=== PATIENT | female | born 1980 | race Caucasian/White ===

== ENCOUNTER 2023-10-18 10:07 | Outpatient (OUT) | payer OTHER, SELFPAY ==
--- NOTE | 2023-10-17 12:43 | V.VEINS.HP ---
Vital Signs 10/18/23 09:43 10/18/23 10:07 Height 5 ft 6 in Weight 64.41 kg BP 106/56 BP Location Left Brachial BP Position Sitting BP Cuff Size Adult BP Source Manual Cuff Respiration 16 Pulse 95 H Pulse Source Monitor Pulse Oximetry (%) 99 Oxygen Delivery Method Room Air Varicose Veins Patient is a 43 year old female in this day as a referral from Althea Longoria NP at Dr. Mason's office. Patient c/o kidney infection in august 2023 with back issues and muscle spasms to which she has cared for with physical therapy. Accompanied with this was a great amount of edema left leg only along with a well pronounced vein to mid left lower leg that was red and raised. The redness and edema have subsided, yet the vein is still very prominent. Patient maintains c/o bilateral leg edema/achiness/pain along with heaviness more in the left leg than right leg for past three months. Patient rates pain at a 3 on a scale of 1-10. Patient has worn bilateral leg knee high compression stockings for approximately 20 years. Patient notes increases in symptoms when she is on her feet for long periods of time, along with changes in diet and sleep schedule. Patient notes improvement in symptoms with compression stockings, rest, and elevation along with additional electrolyte replacment. Family varicose vein disease is noted in maternal grandmother. Patient has not had any procedures done to her veins in the past. Akin Caballero MD personally performed the services described in this documentation, as scribed by Suresh Gamboa RN in my presence and it is both accurate and complete. Suresh Caballero RN, am scribing for, and in the presence of, Dr. Akin Fernandez and in the presence of the patient. . knee: bilateral, calf: bilateral, ankle: bilateral and hutchins: bilateral aching, burning, cramping and dull 3 20 years Worsened in recent months: Yes standing elevating extremities, compression stockings and exercise Reports heaviness, edema and leg edema History of lower extremity trauma: No Superficial thrombophlebitis: No Family history of varicose veins: yes Has patient had previous lower extremity venous surgery: No Patient has previously received the following treatment(s) for lower extremity varicose veins: Reports none Does patient have a history of : yes Does patient intend to have future pregnancies: no Has patient had lower extremity venous scan with relux testing: No Support hose used: Yes Problems walking or doing physical activity: Yes How does it affect you: tires easily and has to set and elevate feet/legs Do you walk much: Yes Do you stand much: Yes Review of Systems ROS Narrative Akin Caballero MD personally performed the services described in this documentation, as scribed by Suresh Gamboa RN in my presence and it is both accurate and complete. I, Suresh Gamboa RN, am scribing for, and in the presence of, Dr. Akin Fernandez and in the presence of the patient. 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 (ICD-10) Vitamin D deficiency ?E55.9 - Vitamin D deficiency, unspecified (ICD-10) Sjogren syndrome ?M35.00 - Sjogren syndrome, unspecified (ICD-10) Raynaud disease without gangrene ?I73.00 - Raynaud's syndrome without gangrene (ICD-10) Nonrheumatic mitral valve regurgitation ?I34.0 - Nonrheumatic mitral (valve) insufficiency (ICD-10) Nonrheumatic aortic (valve) insufficiency ?I35.1 - Nonrheumatic aortic (valve) insufficiency (ICD-10) Intractable migraine with aura without status migrainosus ?G43.119 - Migraine with aura, intractable, without status migrainosus (ICD-10) Varicose veins of bilateral lower extremities with pain ?I83.813 - Varicose veins of bilateral lower extremities with pain (ICD-10) Generalized anxiety disorder ?F41.1 - Generalized anxiety disorder (ICD-10) Surgical History (Updated 10/18/23 @ 10:34 by Suresh Gamboa) History of tonsillectomy and adenoidectomy ?Z90.89 - Acquired absence of other organs (ICD-10) Family History (Updated 10/18/23 @ 10:36 by Suresh Gamboa) Other Arthritis Asthma Family history of cancer Family history of hypertension Family history of myocardial infarction Varicose veins of bilateral lower extremities with pain Social History (Updated 10/18/23 @ 10:36 by Suresh Gamboa) Within the past year, how often did you have a drink containing alcohol: monthly or less Smoking status: Never smoker Non-prescribed substance use: denies use Meds Home Medications and Allergies Home Medications ?Medication ?Instructions ?Recorded ?Confirmed ?Type Lactobacillus acidophilus 10 100 mmu cells PO DAILY 10/18/23 10/18/23 History billion cell capsule (Probacap) cholecalciferol (vitamin D3) 25 25 mcg PO DAILY 10/18/23 10/18/23 History mcg (1,000 unit) capsule clobetasol 0.05 % topical cream 1 applic topical BID 10/18/23 10/18/23 History diphenhydramine HCl 25 mg capsule 25 mg PO Q8H PRN allergy symptoms 10/18/23 10/18/23 History (Allergy (diphenhydramine)) ferrous sulfate 325 mg (65 mg 325 mg PO DAILY 10/18/23 10/18/23 History iron) tablet fluticasone propionate 50 1 spray intranasal DAILY PRN nasal 10/18/23 10/18/23 History mcg/actuation nasal congestion spray,suspension (Aller-Arturo) gabapentin 100 mg capsule 100 mg PO BID 10/18/23 10/18/23 History levocetirizine 2.5 mg/5 mL oral 2.5 mg PO QPM 10/18/23 10/18/23 History solution oxcarbazepine 150 mg tablet 150 mg PO BID 10/18/23 10/18/23 History (Trileptal) Allergies Allergy/AdvReac Type Severity Reaction Status Date / Time celecoxib Allergy Mild Rash Verified 10/18/23 09:56 cevimeline Allergy Mild Rash Verified 10/18/23 09:56 hydroxychloroquine Allergy Mild Rash Verified 10/18/23 09:56 Exam Narrative Exam Narrative: Akin Caballero MD personally performed the services described in this documentation, as scribed by Suresh Gamboa RN in my presence and it is both accurate and complete. ISuresh RN, am scribing for, and in the presence of, Dr. Akin Fernandez and in the presence of the patient. Constitutional Documenting provider has reviewed patient's vital signs: yes Common normals: oriented x3 Cardio Peripheral pulses: dorsalis pedis pulses present Extremity Common normals: normal capillary refill General: edema Right lower extremity: lower leg Right lower leg: inspection and palpation Left lower extremity: lower leg Left lower leg: inspection and palpation Neuro Common normals: oriented x3 Results Additional Findings Additional findings: Bilateral leg reflux u/s reveals no significant varicose vein disease to which needs treated at this time. Akin Caballero MD personally performed the services described in this documentation, as scribed by Suresh Gamboa RN in my presence and it is both accurate and complete. ISuresh RN, am scribing for, and in the presence of, Dr. Akin Fernandez and in the presence of the patient. Assessment and Plan Assessment and Plan (1) Varicose veins of bilateral lower extremities with pain: Plan Dr. Fernandez examines patient and reviews results of bilateral leg reflux u/s. Patient and Dr. Fernandez create plan of care. Plan is for patient to continue use of bilateral leg knee high compression stockings, exercise, rest, and elevation. No treatment nor f/u necessary at this time. Akin Caballero MD personally performed the services described in this documentation, as scribed by Suresh Gamboa RN in my presence and it is both accurate and complete. Suresh Caballero RN, am scribing for, and in the presence of, Dr. Akin Fernandez and in the presence of the patient.
--- NOTE | 2023-10-17 12:44 | P.DS_ITS ---
Discharge Plan Discharge Disposition: Home, Self-Care Follow Up Appointments: no f/u appointment necessary Plan of Treatment: Patient to continue use of bilateral leg knee high compression stockings, exercise, rest, and elevation of bilateral feet/legs. No treatments necessary at this time. Print Language: Kinyarwanda Discharge Date/Time: 10/18/23 11:40
[2023-10-18 10:07] VITALS: BP 106/56; PULSE 95; O2SAT 99
--- NOTE | 2023-10-18 10:09 | VEIN_ITS ---
Patient Name: BEN ORTEZ MR#: [id number] : 1980 Exam Date: 10/18/2023 Ordering Doctor: DR JERRY FERNANDEZ M.D. RADIOLOGY REPORT PROCEDURE: [facility] - OFFICE VISIT INITIAL COMPARISON: None. PROGRESS NOTES: [age] year old female who presents with a 20 year history of mild edema, achiness, heaviness. The patient's left leg symptoms are worse than the right. There has been a progression of symptoms over the past 3 months. This increases with prolonged leg dependency. The patient describes an improvement with compression stockings, rest, elevation, and electrolyte replacement. The patient denies any signs and symptoms to suggest arterial ischemia. The patient describes a family history varicose veins, hypertension, cancer. The patient has drinking and smoking history of occasional alcohol consumption; no tobacco use. Patient has a past medical history significant for Mehnaz-Danlos, Raynauds. The patient denies a history of deep venous thrombus or pulmonary embolus. See separate history and physical for medication list. No prior treatment for varicose or spider veins. Current long-term use of compression stockings. After review of nurse notes, history and physical exam I discussed at length the pathophysiology of venous hypertension and possible treatments, therapies and strategies available. We discussed at length the importance of elevating the lower extremities above the level of the heart, increased physical activity and compression stocking use. Ultrasound venous reflux study performed today was discussed at length with the patient. The report demonstrates areas of mild dilation and mild reflux, but no veins warranting treatment at this time. PHYSICAL EXAM: The right leg demonstrates no significant varicosities, a few scattered spider veins, no ulceration, no significant edema, no skin discoloration. The left leg demonstrates no significant varicosities, a few scattered spider veins, no ulceration, no significant edema, no skin discoloration. Both thighs, legs and feet were symmetrically warm to the touch. Good posterior tibial and dorsalis pedis pulses were present bilaterally. VEIN/[facility] IMPRESSION: 1. No significant venous insufficiency 2. No significant lower extremity varicose veins 3. No significant lower extremity subcutaneous edema 4. No flow significant arterial disease 5. CEAP: C1, EC, , [place] PLAN: 1. Continued use of compression stockings 2. Elevated legs and increased physical activity symptomatic relief 3. Follow-up in the future as needed. Nurse notes, history and physical were reviewed and confirmed, see attached forms. The nurse was present throughout the physical exam and consultation Dictated by: Jerry Fernandez M.D. on 10/18/2023 at 11:39 Approved by: Jerry Fernandez M.D. on 10/18/2023 at 11:46
--- NOTE | 2023-10-18 10:09 | VEIN_ITS ---
Patient Name: BEN ORTEZ MR#: [id number] : 1980 Exam Date: 10/18/2023 Ordering Doctor: DR JERRY FERNANDEZ M.D. RADIOLOGY REPORT PROCEDURE: VC EXT VENOUS REFLUX LALO LMTD COMPARISON: None. INDICATIONS: I83.813 - Varicose veins of bilateral lower extremities with pain TECHNIQUE: Duplex imaging of the lower extremity to assess the deep and superficial venous system for the presence of deep or superficial venous incompetence and to document the location and severity of disease. The study includes evaluation of the great saphenous vein (GSV), anterior accessory saphenous vein (AASV) and small saphenous vein (SSV). Patient scanned in reverse Trendelenburg and standing. FINDINGS: RIGHT LOWER EXTREMITY: Saphenofemoral Junction Reflux: Yes 8.3mm 0.8 sec GSV: Diam (mm) Reflux/ Time (sec) Proximal Thigh 6.2 Yes 2.0 Mid Thigh 4.5 Yes 0.5 Distal Thigh 5.4 Yes 0.5 Prox Calf 3.4 Yes 0.4 Mid Calf 1.8 Yes 0.4 Saphenopopliteal Junction Reflux: 2.4mm Yes 0.5 SSV: Proximal Calf 5.2 Yes 0.2 Mid Calf 2.1 Yes 0.3 AASV: Proximal Thigh 2.8 No Mid Thigh 1.6 No Distal Thigh Thrombi: No acute or chronic thrombus. Compressibility: Normal. Flow: Mild deep venous reflux. Preforator: Distal medial lower leg 3.3 mm with 0.8s reflux. Tech Note: Thigh extension of right SSV. Incompetent varicose vein proximal medial lower leg measures 3.2 mm with 0.4s reflux. LEFT LOWER EXTREMITY: Saphenofemoral Junction Reflux: Yes 7.3 mm 0.5 sec GSV: Diam (mm) Reflux/Time (sec) Proximal Thigh 7.3 Yes 0.2 Mid Thigh 2.8 No Distal Thigh 4.1 Yes 0.3 Prox Calf 2.7 No Mid Calf 2.2 Yes 0.5 Saphenopopliteal Junction Relux: 1.9 mm Yes 0.6 SSV: Proximal Calf 3.2 Yes 0.4 Mid Calf 2.0 No AASV: Proximal Thigh 2.4 No Mid Thigh 1.7 Yes 0.3 Distal Thigh Thrombi: No acute or chronic thrombus. Compressibility: Normal. Flow: Minimal deep venous reflux. Subassemblies Wirer: Distal medial lower leg 3.5 mm with 0.6s reflux. Tech Note: Thigh extension of left SSV. Incompetent varicose vein proximal medial lower leg measures 3.6 mm with 0.3s reflux. Varicose vein that is visible anterior mid lower leg measures 1.2 mm without reflux. CONCLUSION: 1. Multiple areas of mild dilation of the superficial veins and areas of borderline abnormal reflux. No vessels warranting treatment at this time. Dictated by: Jerry Fernandez M.D. on 10/18/2023 at 11:11 Approved by: Jerry Fernandez M.D. on 10/18/2023 at 11:39
== END 2023-10-18 11:40 | disposition home or self-care (01) ==
LOC: VC 10:07
DX: I83.813 Varicose veins of bilateral lower extremities with pain (principal)
CPT/HCPCS: 93970; G0463